=== PATIENT | female | born 1950 | race Caucasian/White ===

== ENCOUNTER 2024-05-23 07:40 | Outpatient (OUT) | payer MEDICARE, OTHER, SELFPAY ==
--- NOTE | 2024-05-23 07:53 | MM_ITS ---
Patient Name: GARDENIA MCGREGOR MR#: [id number] : 1950 Exam Date: 05/23/2024 Ordering Doctor: DR David Lambert . RADIOLOGY REPORT PROCEDURE: MM TOMOSYNTHESIS SCREENING BI COMPARISON: MG MAMM SCREEN 3D JENNIFER CAD, 12/18/2022. MG MAMM SCREEN 3D JENNIFER CAD, 10/27/2021. MG MAMM SCREEN 3D JENNIFER CAD, 07/05/2016. MG MAMM SCREEN JENNIFER W CAD, 06/14/2015. INDICATIONS: Screening for malignant neoplasm Calculator Name NCI Breast Cancer Risk Assessment Tool 5 Year Breast Cancer Risk Not Reported. Lifetime Breast Cancer Risk Not Reported. Personal Breast Cancer No Personal Ovarian Cancer No Treatments None Family Cancers None LOCATION: [facility] BREAST COMPOSITION: The breasts are almost entirely fatty. FINDINGS: DIAGNOSTIC CATEGORY 2--BENIGN FINDING: RIGHT BREAST: No significant suspicious finding. Scattered benign-appearing calcifications are present. No significant change has occurred. LEFT BREAST: No significant suspicious finding. Scattered benign-appearing calcifications are present. No significant change has occurred. RECOMMENDATIONS: ROUTINE MAMMOGRAM AND CLINICAL EVALUATION IN 12 MONTHS. PLEASE NOTE: A NORMAL MAMMOGRAM DOES NOT EXCLUDE THE POSSIBILITY OF BREAST CANCER. A CLINICALLY SUSPICIOUS PALPABLE LUMP SHOULD BE BIOPSIED. Dictated by: Bonifacio Ruiz M.D. on 05/23/2024 at 16:09 Approved by: Bonifacio Ruiz M.D. on 05/23/2024 at 16:20
[2024-05-23 09:45] LABS: Basophils Absolute Auto 0.1 10^3/uL (0.0-0.1); Basophils Percent Auto 0.8 % (0.2-2.0); Eosinophils Absolute Auto 0.3 10^3/uL (0.0-0.7); Eosinophils Percent Auto 3.9 % (0.9-7.0); Hematocrit 45.3 % (36.0-48.0); Hemoglobin 15.3 g/dL (12.0-16.0); Immature Granulocytes Abs Auto 0.06 10^3/uL (0.00-0.03); Immature Granulocytes Pct Auto 0.8 % (0.0-0.5); Lymphocytes Absolute Auto 2.4 10^3/uL (1.2-3.8); Lymphocytes Percent Auto 33.6 % (20.5-60.0); Mean Corpuscular HGB Conc 33.8 g/dL (29.9-35.2); Mean Corpuscular Hemoglobin 32.2 pg (26.7-34.0); Mean Corpuscular Volume 95.4 fL (81.0-99.0); Mean Platelet Volume 10.2 fL (9.5-13.5); Monocytes Absolute Auto 0.6 10^3/uL (0.3-0.8); Monocytes Percent Auto 8.2 % (1.7-12.0); Neutrophils Absolute Auto 3.8 10^3/uL (1.4-6.5); Neutrophils Percent Auto 52.7 % (43.0-75.0); Platelet Count 278 10^3/uL (150-450); Red Blood Count 4.75 10^6/uL (4.20-5.40); Red Cell Distribution Width 14.7 % (11.0-15.0); White Blood Count 7.2 10^3/uL (4.0-11.0)
[2024-05-23 10:28] LABS: Estimated Average Glucose 114 mg/dL; Glycohemoglobin A1C 5.6 % (4.5-6.2)
[2024-05-23 11:10] LABS: Free T4 0.35 ng/dL (0.76-1.46)
[2024-05-23 11:21] LABS: Alanine Aminotransferase 23 U/L (14-59); Albumin Globulin Ratio 1.1; Alkaline Phosphatase 94 U/L (46-116); Anion Gap 15.1; Aspartate Amino Transferase 23 U/L (15-37); BUN Creatinine Ratio 17.8; Bilirubin Direct 0.2 mg/dL (0.0-0.2); Bilirubin Total 0.7 mg/dL (0.2-1.0); Calcium 9.1 mg/dL (8.5-10.1); Chloride 104 mmol/L (98-107); Chol HDL Ratio 3.7; Cholesterol 229 mg/dL (<=200); Estimated GFR (African America >60 (>=60); Estimated GFR (Non-African Ame >60 (>=60); Free T3 1.29 pg/mL (2.18-3.98); Globulin 3.5 g/dL; Glucose 100 mg/dL (74-106); HDL Cholesterol 62 mg/dL (40-60); Potassium 4.1 mmol/L (3.5-5.1); Sodium 142 mmol/L (136-145); Thyroid Stimulating Hormone 51.204 uIU/mL (0.358-3.740); Total Protein 7.5 g/dL (6.4-8.2); Triglycerides 109 mg/dL (<=150); VLDL CHOLESTEROL 21.8 mg/dL
== END 2024-05-23 07:41 | disposition home or self-care (01) ==
LOC: MAMMO 07:44
PROVIDERS: PCP Family Medicine; Visit Provider Family Medicine
DX: Z12.31 Encounter for screening mammogram for malignant neoplasm of breast (principal); R73.03 Prediabetes; Z79.899 Other long term (current) drug therapy; E78.5 Hyperlipidemia, unspecified; E03.9 Hypothyroidism, unspecified
CPT/HCPCS: 36415; 77063; 77067; 80048; 80061; 80076; 83036; 84439; 84443; 84481; 85025

== ENCOUNTER 2024-06-09 09:15 | Outpatient (REF) | payer MEDICARE, OTHER, SELFPAY ==
--- OUTSIDE RECORDS SUMMARY | 2024-07-01 13:27 | XMS_ITS | CCD ---
Author Organization [facility] Care Team Providers Care Vegetable Packer Name Role Phone Ade Mendoza Unavailable BESSY, DR DAVID Kapoor Primary Care Unavailable JOAQUIN, DR BONIFACIO Mason Consulting Unavailable NADERER, DR DAVID Kapoor Attending Unavailable NADERER, DR DAVID Kapoor Admitting Unavailable NADERER, DR DAVID Kapoor Consulting Unavailable NADERER, DR DAVID Kapoor Admitting Unavailable NADERER, DR DAVID Kapoor Primary Care Unavailable NADEREMarlon, DR DAVID Kapoor Consulting Unavailable NADERER, DR DAVID Kapoor Attending Unavailable NADERER, DAVID Attending Unavailable NADERER, DAVID Attending Unavailable NADERER, DAVID Attending Unavailable Bessy, MD Hernandez Attending Provider David Doherty Admitting Unavailable Marceloeremarlon, David Attending Unavailable Allergies Allergy Classification Reported Allergen(s) Allergy Type Date of Onset Reaction(s) Facility (1 source) Opioid Agonists Drug allergy Unknown [facility] Other (1 source) sulfaSALAzine Drug Allergy Unknown [facility] Other (1 source) Morphine Drug Allergy [facility] (1 source) Tetanus Toxoid Purogenated Drug allergy (disorder) [facility] (2 sources) Morphine; Translations: [morphine] Drug Allergy [address] [place] [address] (2 sources) Sulfonamides (Antibiotic); Translations: [Sulfa (Sulfonamide Antibiotics)] Allergy to substance [address] [place] [address] Medications Current Medications Medication Drug Class(es) Dates Sig (Normalized) Sig (Original) Multivitamin preparation (1 source) Multi Vitamin Ac tive Problems Active Problems Problem Classification Problem Date Documented Da te Episodic/Chronic Diabetes mellitus without complication (1 source) Prediabetes; Translations: [PREDIABETES] Onset: 12-22-2022 Episodic Disorders of lipid metabolism (1 source) Hyperlipidemia, unspecified; Translations: [HYPERLIPIDEMIA UNSPECIFIED] Onset: 12-22-2022 Chronic Other aftercare (4 sources) 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; Translations: [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 THERAPY] Onset: 12-18-2022 Episodic Other nutritional; endocrine; and metabolic disorders (1 source) Morbid (severe) obesity due to excess calories; Translations: [MORBID SEVERE OBES D/T EXCESS HUMA] Onset: 12-30-2021 Chronic Other nutritional; endocrine; and metabolic disorders (1 source) Body mass index (BMI) 40.0-44.9, adult; Translations: [BODY MASS INDEX BMI 40.0-44.9 ADULT] Onset: 12-30-2021 Chronic Other screening for suspected conditions (not mental disorders or infectious disease) (1 source) Encounter for screening mammogram for malignant neoplasm of breast; Translations: [ENC SCR MAMMO MALIG NEOPLASM BREAST] Onset: 12-22-2022 Episodic Thyroid disorders (1 source) Hypothyroidism, unspecified; Translations: [HYPOTHYROIDISM UNSPECIFIED] Onset: 12-22-2022 Chronic Past or Other Problems Problem Classification Problem Date Documented Da te Episodic/Chronic Other lower respiratory disease (1 source) Cough; Translations: [Cough] Episodic Unclassified (1 source) Cough R05.9 Onset: 09-23-2021 Resolved: 09-23-2021 Viral infection (1 source) COVID-19 Onset: 09-23-2021 Resolved: 09-23-2021 Results Test Name Value Interpretation Reference Range [facility] 06-09-2024 Specimen: [id number] Received: 06/10/24 Status: TEE Hernandes Num: [id number] Spec Type: Surgical Subm Dr: David Doherty MD Tissues: A Skin-Other than Cyst, tag, debridement or plastic repair (R FLANK SIDE SHAVE Procedures: HE, Gross/Micro L4 Age/ Patient Sex Location Account Attending Physician Gardenia Mcgregor 73/F LABELL [id number] David Doherty MD SPEC NUM: [id number] RECD: 06/10/24 STATUS: TEE HERNANDES NUM: [id number] MARIELA: 06/09/[address]: David Doherty MD ENTERED: 06/10/[address] [facility] [address]: KALEB TYPE: Surgical DEPT: S ENTERED BY: [id number] RECV BY: [id number] ORDERED: Marianne RAYMOND/Patricio L4 ORDERED: Marianne RAYMOND/Patricio L4 Pathological Diagnosis Biopsy of skin lesion from right flank: Seborrheic keratosis, completely excised. Clinical Information Right flank side shave biopsy Gross Description The specimen is received in formalin with the patient's name and right side flank and consists of a raised shave biopsy measuring 1.0 x 0.5 x 0.5 cm. The presumed resection margin is inked black. The specimen is trisected. The specimen frayed during sectioning. The specimen is entirely submitted in cassette A1. CPT Codes 88 305 Specimen: [id number] Received: 06/10/24 Status: TEE Hernandes Num: [id number] Spec Type: Surgical Subm Dr: David Doherty MD Tissues: A Skin-Other than Cyst, tag, debridement or plastic repair (R FLANK SIDE SHAVE Procedures: Marianne RAYMOND/Patricio L4 Patient: Gardenia Mcgregor [id number] (Continued) Signed (signatur e on file) Pramod Vo MD 06/13/24 1139 Normal [facility] CBC AUTO DIFFon 12-18-2022 BASO # 0.0 103/ul Normal 0.0-0.1 [facility] Comment on above: Performed By: #### C BC ####[facility] [address] [place] [address]Dr. Taylor Arriaga Basophils/100 WBC (Bld) 0.7 % Normal 0.2-2.0 [facility] Comment on above: Performed By: #### C BC ####[facility] [address] [place] [address]DrMoo Arriaga EO # 0.3 103/ul Normal 0.0-0.7 [facility] Comment on above: Performed By: #### C BC ####[facility] [address] [place] [address]DrMoo Arriaga Eosinophils/100 WBC (Bld) 5.6 % Normal 0.9-7.0 [facility] Comment on above: Performed By: #### C BC ####[facility] [address] [place], [place] [address]DrMoo Arriaga Erythrocyte distribution width (RBC) [Ratio] 14.7 % Normal 11.0-15.0 [facility] Comment on above: Performed By: #### C BC ####[facility] [address] [place], [place] [address]DrMoo Arriaga Hematocrit (Bld) [Volume fraction] 43.0 % Normal 36.0-48.0 [facility] Comment on above: Performed By: #### C BC ####[facility] [address] [place] [address]Dr. Taylor Arriaga Hemoglobin (Bld) [Mass/Vol] 14.4 g/dL Normal 12.0-16.0 [facility] Comment on above: Performed By: #### C BC ####[facility] [address] [place] [address]Dr. Taylor Arriaga IG # 0.01 10e3/ul Normal 0.00-0.03 [facility] Comment on above: Performed By: #### C BC ####[facility] [address] [place], [place] [address]Dr. Taylor Bart IG % 0.2 % Normal 0.0-0.5 [facility] Comment on above: Performed By: #### C BC ####[facility] [address] [place], [place] [address]Dr. Taylor Bart LYMPH # 1.3 103/ul Normal 1.2-3.8 [facility] Comment on above: Performed By: #### C BC ####[facility] [address] [place], [place] [address]Dr. Flaviadiane Arriaga Lymphocytes/100 WBC (Bld) 24.0 % Normal 20.5-60.0 [facility] Comment on above: Performed By: #### C BC ####[facility] [address] [place], [place] [address]Dr. Taylor Arriaga MANUAL DIFF REQ NO Normal [facility] Comment on above: Performed By: #### C BC ####[facility] [address] [place], [place] [address]Dr. Flaviadiane Arriaga MCH (RBC) [Entitic mass] 32.3 pg Normal 26.7-34.0 [facility] Comment on above: Performed By: #### C BC ####[facility] [address] [place] [address]Dr. Taylor Arriaga MCHC (RBC) [Mass/Vol] 33.5 g/dL Normal 29.9-35.2 [facility] Comment on above: Performed By: #### C BC ####[facility] [address] [place] [id number]. Taylor Arriaga MCV (RBC) [Entitic vol] 96.4 fL Normal 81.0-99.0 [facility] Comment on above: Performed By: #### C BC ####[facility] [address] [place], [place] [address]Dr. Taylor Arriaga MONO # 0.7 103/ul Normal 0.3-0.8 [facility] Comment on above: Performed By: #### C BC ####[facility] [address] [place], [place] [address]Dr. Taylor Bart Monocytes/100 WBC (Bld) 12.0 % Normal 1.7-12.0 [facility] Comment on above: Performed By: #### C BC ####[facility] [address] [place], [place] [address]Dr. Taylor Arriaga NEUT # 3.2 103/ul Normal 1.4-6.5 [facility] Comment on above: Performed By: #### C BC ####[facility] [address] [place], [place] [address]Dr. Flaviadiane Arriaga Neutrophils/100 WBC (Bld) 57.5 % Normal 43.0-75.0 [facility] Comment on above: Performed By: #### C BC ####[facility] [address] [place], [place] [address]Dr. Taylor Bart Platelet mean volume (Bld) [Entitic vol] 9.3 fL Critically low 9.5-13.5 [facility] Comment on above: Performed By: #### C BC ####[facility] [address] [place], [place] [address]Dr. Taylor Arriaga PLT 262 103/ul Normal 150-450 [facility] Comment on above: Performed By: #### C BC ####[facility] [address] [place], [place] [address]Dr. Taylor Arriaga RBC 4.46 106/ul Normal 4.20-5.40 [facility] Comment on above: Performed By: #### C BC ####[facility] [address] [place] [address]Dr. Taylor Arriaga WBC 5.6 103/ul Normal 4.0-11.0 [facility] Comment on above: Performed By: #### C BC ####[facility] [address] [place] [address]Dr. Taylor Arriaga FREE T3on 12-18-2022 FREE T3 1.25 pg/mlL Critically low 2.18-3.98 [facility] Comment on above: Performed By: #### L IVER, FT3, TSH, LIPID, BMP #### [facility] [address] [address] [address] Taylor Arriaga FREE T4on 12-18-2022 Free T4 [Mass/Vol] 0.29 ng/dL Critically low 0.76-1.46 [facility] Comment on above: Performed By: #### F T4 #### [facility] [address] [address] [address] Taylor Arriaga GLYCOHEMOGLOBIN A1Con 2022 ADA RECOMMENDATION SEE BELOW Normal [facility] Comment on above: Result Comment: ADA RECOMMENDED LIMIT 4.0 - 6.0 ADA THERAPEUTIC TARGET < 7.0 ACTION SUGGESTED > 7.0 Performed By: #### A 1C #### [facility] [address] [address] [address] Taylor Arriaga Glucose [Mass/Vol] 117 mg/dL Normal [facility] Comment on above: Performed By: #### A 1C #### [facility] [address] [address] [address] Taylor Arriaga HbA1c (Bld) [Mass fraction] 5.7 % Normal 4.5-6.2 [facility] Comment on above: Performed By: #### A 1C #### [facility] [address] [address] [address] Taylor Arriaga LIPID PROFILEon 12-18-2022 CHOL-HDL RATIO NORM SEE BELOW Normal [facility] Comment on above: Result Comment: 3.3 - 4.4 LOW RISK 4.4 - 7.1 AVERAGE RISK 7.1 - 11.0 MODERATE RISK >11.0 HIGH RISK Performed By: #### L IVER, FT3, TSH, LIPID, BMP #### [facility] [address] [address] [address] Taylor Arriaga Cholesterol [Mass/Vol] 238 mg/dL Critically high <=200 [facility] Comment on above: Performed By: #### L IVER, FT3, TSH, LIPID, BMP #### [facility] [address] [address] [address] Taylor Arriaga Cholesterol in HDL [Mass/Vol] 63 mg/dL Critically high 40-60 [facility] Comment on above: Performed By: #### L IVER, FT3, TSH, LIPID, BMP #### [facility] [address] [place] [address] Dr. Taylor Arriaga Cholesterol in LDL [Mass/Vol] 159.2 mg/dL Normal [facility] Comment on above: Performed By: #### L IVER, FT3, TSH, LIPID, BMP #### [facility] [address] [address] [address] Taylor Arriaga Cholesterol.total/Ch olesterol in HDL [Mass ratio] 3.8 {ratio} Normal [facility] Comment on above: Performed By: #### L IVER, FT3, TSH, LIPID, BMP #### [facility] [address] [address] [address] Taylor Arriaga HDL NORMAL > or = 60 mg/dl - LOW CARDIOVASCULAR RISK <40 mg/dl - HIGH CARDIOVASCULAR RISK Normal [facility] Comment on above: Performed By: #### L IVER, FT3, TSH, LIPID, BMP #### [facility] [address] [address] [address] Taylor Arriaga LDL CALC NORMAL SEE BELOW Normal [facility] Comment on above: Result Comment: <100 mg/dl OPTIMAL 100 - 129 mg/dl NEAR OR ABOVE OPTIMAL 130 - 159 mg/dl BORDERLINE HIGH 160 - 189 mg/dl HIGH >190 mg/dl VERY HIGH Performed By: #### L IVER, FT3, TSH, LIPID, BMP #### [facility] [address] [address] [address] Taylor Arriaga Triglyceride [Mass/Vol] 79 mg/dL Normal <=150 [facility] Comment on above: Performed By: #### L IVER, FT3, TSH, LIPID, BMP #### [facility] [address] [address] [address] Taylor Arriaga VLDL CALC 15.8 mg/dL Normal [facility] Comment on above: Performed By: #### L IVER, FT3, TSH, LIPID, BMP #### [facility] [address] [address] [address] Taylor Arriaga LIVER PROFILEon 12-18-2022 Albumin [Mass/Vol] 4.3 g/dL Normal 3.4-5.0 [facility] Comment on above: Performed By: #### L IVER, FT3, TSH, LIPID, BMP #### [facility] [address] [place] [address] Dr. Taylor Arriaga Albumin/Globulin [Mass ratio] 1.3 {ratio} Normal [facility] Comment on above: Performed By: #### L IVER, FT3, TSH, LIPID, BMP #### [facility] [address] [place] [address] Dr. Taylor Arriaga ALP [Catalytic activity/Vol] 78 U/L Normal 46-116 [facility] Comment on above: Performed By: #### L IVER, FT3, TSH, LIPID, BMP #### [facility] [address] [place] [address] Dr. Taylor Arriaga ALT [Catalytic activity/Vol] 23 U/L Normal 14-59 [facility] Comment on above: Performed By: #### L IVER, FT3, TSH, LIPID, BMP #### [facility] [address] [place] [address] Dr. Taylor Arriaga AST [Catalytic activity/Vol] 28 U/L Normal 15-37 [facility] Comment on above: Performed By: #### L IVER, FT3, TSH, LIPID, BMP #### [facility] [address] [place] [address] Dr. Taylor Arriaga BILI, CONJUGATED 0.1 mg/dL Normal 0.0-0.2 [facility] Comment on above: Performed By: #### L IVER, FT3, TSH, LIPID, BMP #### [facility] [address] [address] [address] Taylor Arriaga Bilirubin [Mass/Vol] 0.6 mg/dL Normal 0.2-1.0 [facility] Comment on above: Performed By: #### L IVER, FT3, TSH, LIPID, BMP #### [facility] [address] [address] [address] Taylor Arriaga Globulin (S) [Mass/Vol] 3.2 g/dL Normal [facility] Comment on above: Performed By: #### L IVER, FT3, TSH, LIPID, BMP #### [facility] [address] [place] [address] Dr. Taylor Arriaga Protein [Mass/Vol] 7.5 g/dL Normal 6.4-8.2 [facility] Comment on above: Performed By: #### L IVER, FT3, TSH, LIPID, BMP #### [facility] [address] [address] [address] Taylor Arriaga MG MAMM SCREEN 3D JENNIFER CADon 12-18-2022 MG MAMM SCREEN 3D JENNIFER CAD Patient: GARDENIA MCGREGOR Exam Date: 12/18/2022 : 1950 Gender:F Ordering : DR DAVID DOHERTY . Admission #: [id number] Family : Order #: [id number] CLICK HERE TO VIEW EXAM RADIOLOGY REPORT PROCEDURE: MAMMOGRAM SCREENING 3D BILATERAL CAD COMPARISON: MG MAMM SCREEN 3D JENNIFER CAD, 10/27/2021. MG MAMM SCREEN 3D JENNIFER CAD, 07/05/2016. MG MAMM SCREEN JENNIFER W CAD, 06/14/2015. INDICATIONS: Screening mammography Calculator Name NCI Breast Cancer Risk Assessment Tool 5 Year Breast Cancer Risk Not Reported. Lifetime Breast Cancer Risk Not Reported. Personal Breast Cancer No Personal Ovarian Cancer No Treatments None Family Cancers None LOCATION: [facility] BREAST COMPOSITION: Almost entirely fatty. FINDINGS: DIAGNOSTIC CATEGORY 2--BENIGN FINDING: RIGHT BREAST: No significant suspicious finding. Scattered benign-appearing calcifications are present. No significant change has occurred. LEFT BREAST: No significant suspicious finding. Scattered benign-appearing calcifications are present. No significant change has occurred. RECOMMENDATIONS: ROUTINE MAMMOGRAM AND CLINICAL EVALUATION IN 12 MONTHS. PLEASE NOTE: A NORMAL MAMMOGRAM DOES NOT EXCLUDE THE POSSIBILITY OF BREAST CANCER. A CLINICALLY SUSPICIOUS PALPABLE LUMP SHOULD BE BIOPSIED. Dictated by: Bonifacio Ruiz M.D. on 12/18/2022 at 11:02 Approved by: Bonifacio Ruiz M.D. on 12/18/2022 at 11:07 Normal [facility] PROF CHEM 8 (BAS METB)on Anion gap [Moles/Vol] 9.2 mmol/L Normal [facility] Comment on above: Performed By: #### L IVER, FT3, TSH, LIPID, BMP #### [facility] [address] [place] [address] Dr. Taylor Arriaga Calcium [Mass/Vol] 9.3 mg/dL Normal 8.5-10.1 [facility] Comment on above: Performed By: #### L IVER, FT3, TSH, LIPID, BMP #### [facility] [address] [address] [address] Taylor Arriaga Chloride [Moles/Vol] 106 mmol/L Normal 98-107 [facility] Comment on above: Performed By: #### L IVER, FT3, TSH, LIPID, BMP #### [facility] [address] [place] [address] Dr. Taylor Arriaga CO2 [Moles/Vol] 29.4 mmol/L Normal 21.0-32.0 [facility] Comment on above: Performed By: #### L IVER, FT3, TSH, LIPID, BMP #### [facility] [address] [place] [address] Dr. Taylor Arriaga Creatinine [Mass/Vol] 0.85 mg/dL Normal 0.55-1.02 [facility] Comment on above: Performed By: #### L IVER, FT3, TSH, LIPID, BMP #### [facility] [address] [place] [address] Dr. Taylor Arriaga EGFR-AF CYMRO >60 Normal >=60 [facility] Comment on above: Performed By: #### L IVER, FT3, TSH, LIPID, BMP #### [facility] [address] [address] [address] Taylor Arriaga EGFR-NON AF CYMRO >60 Normal >=60 [facility] Comment on above: Performed By: #### L IVER, FT3, TSH, LIPID, BMP #### [facility] [address] [address] [address] Taylor Arriaga Glucose [Mass/Vol] 97 mg/dL Normal 74-106 [facility] Comment on above: Performed By: #### L IVER, FT3, TSH, LIPID, BMP #### [facility] [address] [place] [address] Dr. Taylor Arriaga Potassium [Moles/Vol] 4.6 mmol/L Normal 3.5-5.1 [facility] Comment on above: Performed By: #### L IVER, FT3, TSH, LIPID, BMP #### [facility] [address] [address] [address] Taylor Arriaga Sodium [Moles/Vol] 140 mmol/L Normal 136-145 [facility] Comment on above: Performed By: #### L IVER, FT3, TSH, LIPID, BMP #### [facility] [address] [address] [address] Taylor Arriaga Urea nitrogen [Mass/Vol] 19.0 mg/dL Critically high 7.0-18.0 [facility] Comment on above: Performed By: #### L IVER, FT3, TSH, LIPID, BMP #### [facility] [address] [address] [address] Taylor Arriaga Urea nitrogen/Creatinine [Mass ratio] 22.4 mg/mg Normal [facility] Comment on above: Performed By: #### L IVER, FT3, TSH, LIPID, BMP #### [facility] [address] [address] [address] Taylor Arriaga TSHon 04-03-2023 TSH 42.963 uIU/mL Critically high 0.358-3.740 [facility] Comment on above: Performed By: #### L IVER, FT3, TSH, LIPID, BMP #### [facility] [address] [address] [address] Taylor Arriaga CBC AUTO DIFFon 12-28-2021 BASO # 0.1 103/ul Normal 0.0-0.1 [facility] Comment on above: Performed By: #### C BC #### [facility] [address] [place] [address] Dr. Taylor Arriaga Basophils/100 WBC (Bld) 1.1 % Normal 0.2-2.0 [facility] Comment on above: Performed By: #### C BC #### [facility] [address] [place] [address] Dr. Taylor Arriaga EO # 0.2 103/ul Normal 0.0-0.7 [facility] Comment on above: Performed By: #### C BC #### [facility] [address] [place] [address] Dr. Taylor Arriaga Eosinophils/100 WBC (Bld) 3.8 % Normal 0.9-7.0 [facility] Comment on above: Performed By: #### C BC #### [facility] [address] [place] [address] Dr. Taylor Arriaga Erythrocyte distribution width (RBC) [Ratio] 15.9 % Critically high 11.0-15.0 [facility] Comment on above: Performed By: #### C BC #### [facility] [address] [place] [address] Dr. Taylor Arriaga Hematocrit (Bld) [Volume fraction] 44.2 % Normal 36.0-48.0 [facility] Comment on above: Performed By: #### C BC #### [facility] [address] [place] [address] Dr. Taylor Arriaga Hemoglobin (Bld) [Mass/Vol] 13.8 g/dL Normal 12.0-16.0 [facility] Comment on above: Performed By: #### C BC #### [facility] [address] [place] [address] Dr. Taylor Arriaga IG # 0.01 10e3/ul Normal 0.00-0.03 [facility] Comment on above: Performed By: #### C BC #### [facility] [address] [place] [address] Dr. Taylor Arriaga IG % 0.2 % Normal 0.0-0.5 [facility] Comment on above: Performed By: #### C BC #### [facility] [address] [place] [address] Dr. Taylor Arriaga LYMPH # 1.9 103/ul Normal 1.2-3.8 [facility] Comment on above: Performed By: #### C BC #### [facility] [address] [place] [address] Dr. Taylor Arriaga Lymphocytes/100 WBC (Bld) 33.9 % Normal 20.5-60.0 [facility] Comment on above: Performed By: #### C BC #### [facility] [address] [place] [address] Dr. Taylor Arriaga MANUAL DIFF REQ NO Normal [facility] Comment on above: Performed By: #### C BC #### [facility] [address] [place] [address] Dr. Taylor Arriaga MCH (RBC) [Entitic mass] 31.3 pg Normal 26.7-34.0 [facility] Comment on above: Performed By: #### C BC #### [facility] [address] [place] [address] Dr. Taylor Arriaga MCHC (RBC) [Mass/Vol] 31.2 g/dL Normal 29.9-35.2 [facility] Comment on above: Performed By: #### C BC #### [facility] [address] [place] [address] Dr. Taylor Arriaga MCV (RBC) [Entitic vol] 100.2 fL Critically high 81.0-99.0 [facility] Comment on above: Performed By: #### C BC #### [facility] [address] [place] [address] Dr. Taylor Arriaga MONO # 0.6 103/ul Normal 0.3-0.8 [facility] Comment on above: Performed By: #### C BC #### [facility] [address] [place] [address] Dr. Taylor Arriaga Monocytes/100 WBC (Bld) 10.0 % Normal 1.7-12.0 [facility] Comment on above: Performed By: #### C BC #### [facility] [address] [place] [address] Dr. Taylor Arriaga NEUT # 2.8 103/ul Normal 1.4-6.5 [facility] Comment on above: Performed By: #### C BC #### [facility] [address] [place] [address] Dr. Taylor Arriaga Neutrophils/100 WBC (Bld) 51.0 % Normal 43.0-75.0 [facility] Comment on above: Performed By: #### C BC #### [facility] [address] [place] [address] Dr. Taylor Arriaga Platelet mean volume (Bld) [Entitic vol] 9.8 fL Normal 9.5-13.5 [facility] Comment on above: Performed By: #### C BC #### [facility] [address] [place] [address] Dr. Taylor Arriaga PLT 299 103/ul Normal 150-450 [facility] Comment on above: Performed By: #### C BC #### [facility] [address] [place] [address] Dr. Taylor Arriaga RBC 4.41 106/ul Normal 4.20-5.40 [facility] Comment on above: Performed By: #### C BC #### [facility] [address] [place] [address] Dr. Taylor Arriaga WBC 5.5 103/ul Normal 4.0-11.0 [facility] Comment on above: Performed By: #### C BC #### [facility] [address] [place] [address] Dr. Taylor Arriaga GLYCOHEMOGLOBIN A1Con 04-13- 2022 ADA RECOMMENDATION ADA THERAPEUTIC TARGET 6.0 - 7.0 ACTION SUGGESTED > 7.0 Normal [facility] Comment on above: Performed By: #### A 1C #### [facility] [address] [address] [address] Taylor Arriaga Glucose [Mass/Vol] 126 mg/dL Normal [facility] Comment on above: Performed By: #### A 1C #### [facility] [id number] Taylor Arriaga HbA1c (Bld) [Mass fraction] 6.0 % Normal <=6.0 [facility] Comment on above: Performed By: #### A 1C #### [facility] [address] [address] [address] Taylor Arriaga LIPID PROFILEon 12-28-2021 CHOL-HDL RATIO NORM SEE BELOW Normal [facility] Comment on above: Result Comment: 3.3 - 4.4 LOW RISK 4.4 - 7.1 AVERAGE RISK 7.1 - 11.0 MODERATE RISK >11.0 HIGH RISK Performed By: #### B MP, TSH, LIVER, LIPID ####[facility] [address] [id number]. Taylor Arriaga Cholesterol [Mass/Vol] 226 mg/dL Critically high <=200 [facility] Comment on above: Performed By: #### B MP, TSH, LIVER, LIPID ####[facility] [address] [place], [place] [address]HfMoo Arriaga Cholesterol in HDL [Mass/Vol] 59 mg/dL Normal 40-60 [facility] Comment on above: Performed By: #### B MP, TSH, LIVER, LIPID ####[facility] [address] [place], [place] [address]ClMoo Arriaga Cholesterol in LDL [Mass/Vol] 152.2 mg/dL Normal [facility] Comment on above: Performed By: #### B MP, TSH, LIVER, LIPID ####[facility] [address] [id number] Arriaga Cholesterol.total/Ch olesterol in HDL [Mass ratio] 3.8 {ratio} Normal [facility] Comment on above: Performed By: #### B MP, TSH, LIVER, LIPID ####[facility] [address] [id number]. Taylor Arriaga HDL NORMAL > or = 60 mg/dl - LOW CARDIOVASCULAR RISK <40 mg/dl - HIGH CARDIOVASCULAR RISK Normal [facility] Comment on above: Performed By: #### B MP, TSH, LIVER, LIPID ####[facility] [address] [address]Dr. Taylor Arriaga LDL CALC NORMAL SEE BELOW Normal [facility] Comment on above: Result Comment: <100 mg/dl OPTIMAL 100 - 129 mg/dl NEAR OR ABOVE OPTIMAL 130 - 159 mg/dl BORDERLINE HIGH 160 - 189 mg/dl HIGH >190 mg/dl VERY HIGH Performed By: #### B MP, TSH, LIVER, LIPID ####[facility] [address] [address]Dr. Taylor Arriaga Triglyceride [Mass/Vol] 74 mg/dL Normal <=150 [facility] Comment on above: Performed By: #### B MP, TSH, LIVER, LIPID ####[facility] [address] [address]Dr. Taylor Arriaga VLDL CALC 14.8 mg/dL Normal [facility] Comment on above: Performed By: #### B MP, TSH, LIVER, LIPID ####[facility] [address] [id number]. Taylor Arriaga LIVER PROFILEon 12-28-2021 Albumin [Mass/Vol] 3.8 g/dL Normal 3.4-5.0 [facility] Comment on above: Performed By: #### B MP, TSH, LIVER, LIPID ####[facility] [address] [id number]. Taylor Arriaga Albumin/Globulin [Mass ratio] 1.1 {ratio} Normal [facility] Comment on above: Performed By: #### B MP, TSH, LIVER, LIPID ####[facility] [address] [id number]. Taylor Arriaga ALP [Catalytic activity/Vol] 75 U/L Normal 46-116 [facility] Comment on above: Performed By: #### B MP, TSH, LIVER, LIPID ####[facility] [address] [address]Dr. Taylor Arriaga ALT [Catalytic activity/Vol] 23 U/L Normal 14-59 [facility] Comment on above: Performed By: #### B MP, TSH, LIVER, LIPID ####[facility] [address] [address]Dr. Taylor Arriaga AST [Catalytic activity/Vol] 20 U/L Normal 15-37 [facility] Comment on above: Performed By: #### B MP, TSH, LIVER, LIPID ####[facility] [address] [address]Dr. Taylor Arriaga BILI, CONJUGATED 0.1 mg/dL Normal 0.0-0.3 [facility] Comment on above: Performed By: #### B MP, TSH, LIVER, LIPID ####[facility] [address] [address]Dr. Taylor Arriaga Bilirubin [Mass/Vol] 0.6 mg/dL Normal 0.2-1.3 [facility] Comment on above: Performed By: #### B MP, TSH, LIVER, LIPID ####[facility] [address] [address]Dr. Taylor Arriaga Globulin (S) [Mass/Vol] 3.6 g/dL Normal [facility] Comment on above: Performed By: #### B MP, TSH, LIVER, LIPID ####[facility] [address] [address]Dr. Taylor Arriaga Protein [Mass/Vol] 7.4 g/dL Normal 6.1-8.2 [facility] Comment on above: Performed By: #### B MP, TSH, LIVER, LIPID ####[facility] [address] [address]Dr. Taylor Arriaga PROF CHEM 8 (BAS METB)on Anion gap [Moles/Vol] 11.4 mmol/L Normal [facility] Comment on above: Performed By: #### B MP, TSH, LIVER, LIPID ####[facility] [address] [address]Dr. Taylor Arriaga Calcium [Mass/Vol] 8.7 mg/dL Normal 8.5-10.1 [facility] Comment on above: Performed By: #### B MP, TSH, LIVER, LIPID ####[facility] [address] [address]Dr. Taylor Arriaga Chloride [Moles/Vol] 106 mmol/L Normal 98-107 [facility] Comment on above: Performed By: #### B MP, TSH, LIVER, LIPID ####[facility] [address] [address]Dr. Taylor Arriaga CO2 [Moles/Vol] 28.9 mmol/L Normal 22.0-30.0 [facility] Comment on above: Performed By: #### B MP, TSH, LIVER, LIPID ####[facility] [address] [place], [place] [address]Dr. Taylor Arriaga Creatinine [Mass/Vol] 0.88 mg/dL Normal 0.52-1.04 [facility] Comment on above: Performed By: #### B MP, TSH, LIVER, LIPID ####[facility] [address] [place], [place] [address]Dr. Taylor Arriaga EGFR-AF CYMRO >60 Normal >=60 [facility] Comment on above: Performed By: #### B MP, TSH, LIVER, LIPID ####[facility] [address] [address]Dr. Taylor Arriaga EGFR-NON AF CYMRO >60 Normal >=60 [facility] Comment on above: Performed By: #### B MP, TSH, LIVER, LIPID ####[facility] [address] [address]Dr. Taylor Arriaga Glucose [Mass/Vol] 95 mg/dL Normal 74-106 [facility] Comment on above: Performed By: #### B MP, TSH, LIVER, LIPID ####[facility] [address] [address]Dr. Yilan Arriaga Potassium [Moles/Vol] 4.3 mmol/L Normal 3.4-5.0 [facility] Comment on above: Performed By: #### B MP, TSH, LIVER, LIPID ####[facility] [address] [address]Dr. Taylor Arriaga Sodium [Moles/Vol] 142 mmol/L Normal 137-145 [facility] Comment on above: Performed By: #### B MP, TSH, LIVER, LIPID ####[facility] [address] [address]Dr. Taylor Arriaga Urea nitrogen [Mass/Vol] 16.0 mg/dL Normal 7.0-18.0 [facility] Comment on above: Performed By: #### B MP, TSH, LIVER, LIPID ####[facility] [address] [address]Dr. Taylor Arriaga Urea nitrogen/Creatinine [Mass ratio] 18.2 mg/mg Normal [facility] Comment on above: Performed By: #### B MP, TSH, LIVER, LIPID ####[facility] [address] [address]Dr. Taylor Arriaga TSHon 12-28-2021 TSH 47.886 uIU/mL Critically high 0.470-4.680 [facility] Comment on above: Performed By: #### B MP, TSH, LIVER, LIPID ####[facility] [address] [address]Dr. Taylor Arriaga TSH RANGE SEE BELOW Normal [facility] Comment on above: Result Comment: <0.3 4 UIU/ml HYPERTHYROID 0.34-5.60 UIU/ml EUTHYROID >5.60 UIU/ml HYPOTHYROID Performed By: #### B MP, TSH, LIVER, LIPID ####[facility] [address] [address]Dr. Taylor Arriaga COVID + FLU Quick Testingon 09-23-2021 SARS-CoV-2 (COVID-19) RNA DARSHANA+probe Ql (Unsp spec) Positive [facility] Other COVID + FLU Quick Testing Negative [facility] Other Vital Signs Date Time Vital Sign Value Performing Clinician Facility 09-23-2021 12:45-0500 Body temperature 101.6 [degF] Ade Ginty Other [facility] 09-23-2021 12:45-0500 Respiratory rate 18 /min Ade Ginty Other [facility] Other 09-23-2021 12:45-0500 SaO2% (BldA) [Mass fraction] 77 % Ade Ginty Other [facility] Other Encounters Encounter Date Encounter Type Care Provider Facility Start: 06-09-2024 End: 06-09-2024 ambulatory David Doherty [facility] Work Phone: Start: 06-09-2024 End: 06-09-2024 Departed Referred MD David Doherty Work Phone: [facility] Start: 06-09-2024 End: 06-09-2024 ambulatory DAVID DOHERTY Not Available Start: 05-30-2024 End: 05-30-2024 ambulatory DAVID DOHERTY Not Available Start: 02-19-2024 End: 02-19-2024 ambulatory DAVID DOHERTY Not Available Start: 12-18-2022 End: 12-19-[address] DAVID DOHERTY Facility:[facility] Start: 12-28-2021 End: 12-29-[address] DAVID DOHERTY Facility:[facility] Start: 09-23-2021 End: 09-23-2021 ambulatory Ade Heavennty Other [facility] Other Start: 09-23-2021 Office outpatient vi sit 5 minutes Ade Ginty [facility] Payers Date Payer Category Payer Self-pay 1957 Medicare [id number] 2.1 [id number] 1957 Private Health Insurance [id number] 1950 Unknown [id number] [id number] [id number] 1950 Unknown [id number] 2.16.84 [id number] 1950 Unknown [id number] 2.16.84 [id number] 1950 Unknown [id number] 2.16.84 [id number] 1950 Unknown [id number] 2.16.84 [id number] Social History Date Type Detail Facility Sex Assigned At [facility] Other Start: 1950 Sex Assigned At Female F [facility] Evaluation note 09-23-2021 Note Date & Type Note Facility 09-23-2021 Evaluation note Encounter Date Diagnosis Assessment Notes Sep, Cough (ICD-10 - R05.9) Sep, COVID-19 (ICD-10 - U07.1) Advised patient that COVID antigen test was positive today. Influenza A/B test negative. Patient had SPO2 stats between 77%-85% today in office, referred to ER for further management. Patient refused squad, daughter drove patient. Report called to ER. [facility] Other Evaluation note Note Date & Type Note Facility Evaluation note No assessment information availa [facility] Work Phone: History general Narrative - Reported Note Date & Type Note Facility History general Narrative - Reported Type Surgical History broken right arm/operated on Surgical History c sections x3 Surgical History d/c Surgical History right foot surgery Hospitalization History see above [facility] Other Summary Purpose Family History No Family History Records FoundNo Family History Records FoundNo Family History Records Found Advance Directives No Advanced Directives Records FoundNo Advanced Directives Records FoundNo Advanced Directives Records Found Additional Source Comments REASON FOR VISIT (unrecogniz ed section and content) #12 DOMO ZUÑIGA S CONGESTION, COUGH INFORMATION SOURCE (unrecogn ized section and content) DATE CREATED AUTHOR 12/23/2022 [facility] DATE CREATED AUTHOR AUTHOR'S ORGANIZ ATION 06/10/2024 [facility] EPIC DATE CREATED AUTHOR AUTHOR'S ORGANIZ ATION 06/14/2024 [facility] Care Teams (unrecognized sec tion and content) Team Status: Inactive Member Role Status Dates David Doherty MD Attending Provider Active Star t: June 09, 2024 End: June 09, 2024 Goals (unrecognized section and content) Goals may be documented in a n alternate section FOR RECORDS PERTAINING TO PATIENTS WHO ARE OR HAVE BEEN ENROLLED IN A CHEMICAL DEPENDENCY/SUBSTANCEABUSE PROGRAM, SOME INFORMATION MAY BE OMITTED. This clinical summary was aggregated from multiple sources. Caution should be exercised in using it in the provision of clinical care. This summary normalizes information from multiple sources, and as a consequence, information in this document may materially change the coding, format and clinical context of patient data. In addition, data may be omitted in some cases. CLINICAL DECISIONS SHOULD BE BASED ON THE PRIMARY CLINICAL RECORDS. [facility] [employer] provides no warranty or guarantee of the accuracy or completeness of information in this document.
== END 2024-06-09 09:16 ==
LOC: LAB 09:15
PROVIDERS: PCP Family Medicine; Visit Provider Family Medicine
DX: D48.5 Neoplasm of uncertain behavior of skin (principal)
CPT/HCPCS: 88305